=== PATIENT | male | born 2000 | race Caucasian/White ===

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

== ENCOUNTER 2020-04-26 21:04 | Emergency (ER) | payer MEDICAID, OTHER ==
[~2020-04-26] VITALS: Ht 182.9 cm; Wt 81.6 kg
[2020-04-26 21:25] VITALS: BP 127/75
[2020-04-26] MEDS ORDERED: KETOROLAC 60 MG/2 ML VIAL IM ONE (21:45)
[2020-04-26 22:01] VITALS: BP 127/75
== END 2020-04-26 22:01 | disposition home or self-care (01) ==
LOC: MED 21:04
DX: R51 Headache (principal); V49.88XA Car occupant (driver) (passenger) injured in other specified transport accidents, initial encounter; Y93.89 Activity, other specified; Y92.89 Other specified places as the place of occurrence of the external cause; Y99.8 Other external cause status
CPT/HCPCS: 96372; 99283; J1885

== ENCOUNTER 2022-10-11 17:19 | Emergency (ER) | payer OTHER ==
[~2022-10-11] VITALS: Ht 182.9 cm; Wt 85.7 kg
[2022-10-11 17:36] VITALS: BP 122/84
--- NOTE | 2022-10-11 17:40 | NUR ---
22/M WALKED IN C/O COUGH, CONGESTION, RUNNY NOSE ONSET 4 DAYS. PT ALSO REPORTS VOMTING YESTERDAY. PT REPORTS UNABLE TO KEEP FOOD DOWN. AFEBRILE AT TRIAGE. AAO4, AMBULATORY, NO ACUTE DISTRESS, VITALS STABLE.
--- NOTE | 2022-10-11 17:40 | NUR ---
COVID AND FLU SWAB COLLECTED AND SENT TO LAB
--- NOTE | 2022-10-11 19:03 | NUR ---
Patient ambulatedwith steady gait to bed 6.
--- NOTE | 2022-10-11 19:19 | NUR ---
REPORT GIVEN CHARLINE SIM. TRANSFER OF CARE AT THIS TIME
--- NOTE | 2022-10-11 19:20 | NUR ---
ASSUMED PATIENT CARE.DOESNT APPEAR TO BE IN DISTRESS. BED LOW AND LOCKED. SIDE RAIL UP X1 FOR SAFETY. ALL NEEDS MET.
[2022-10-11] MEDS ORDERED: SUD30 PO (19:40)
[2022-10-11] MEDS ORDERED: IBUP-2213 PO (19:40)
[2022-10-11] MEDS ORDERED: PROM118S5 PO (19:40)
--- NOTE | 2022-10-11 20:01 | NUR ---
Patient discharged with v/s stable. Written and verbal after care instructions given and explained. Patient alert, oriented and verbalized understanding of instructions. Ambulatory with steady gait. All questions addressed prior to discharge. ID band removed. Patient advised to follow up with PMD. Rx of IBUPROFEN, PROMMETHAZINE/DEXTROMETHORPHAN, AND SUDAFED given. Patient educated on indication of medication including possible reaction and side effects. Opportunity to ask questions provided and answered.
== END 2022-10-11 20:07 | disposition home or self-care (01) ==
LOC: MED 17:19
DX: U07.1 COVID-19 (principal)
CPT/HCPCS: 99283